=== PATIENT | female | born 1950 | race Caucasian/White ===

== ENCOUNTER 2019-04-28 21:46 | Emergency (ER) | payer MEDICARE, OTHER ==
[2019-04-28] MEDS ORDERED: Diphtheria,Pertussis(Acell),Tetanus Vaccine 0.5 ML SDV IM ONE (22:27)
--- NOTE | 2019-04-28 22:27 | EDM.PDOC ---
ED HPI GENERAL MEDICAL PROBLEM - General Chief Complaint: Skin Complaint Stated Complaint: FISH HOOK MIDDLE FINGER RI HAND Time Seen by Provider: 04/28/19 22:05 Source of Information: Reports: Patient History Limitations: Reports: No Limitations - History of Present Illness INITIAL COMMENTS - FREE TEXT/NARRATIVE: fish hook in distal finger pad pad of 3rd digit right hand. generally healthy - Related Data Allergies Allergy/AdvReac Type Severity Reaction Status Date / Time nitrofurantoin Allergy Rash Verified 04/28/19 22:03 [From Macrobid] Sulfa (Sulfonamide Allergy Hives Verified 04/28/19 22:03 Antibiotics) Home Meds: Home Meds Estrogens, Conjugated [Premarin Vaginal Crm] 04/28/19 [History] Past Medical History - Past Surgical History GI Surgical History: Reports: Abdominal paracentesis, Cholecystectomy Musculoskeletal Surgical History: Reports: Arthroscopic Knee Social & Family History - Tobacco Use Smoking Status *Q: Never Smoker ED ROS GENERAL - Review of Systems Review Of Systems: See Below Constitutional: Denies: Fever, Chills Respiratory: Denies: Shortness of Breath, Wheezing Cardiovascular: Denies: Chest Pain ED EXAM, SKIN/RASH Exam: See Below Text/Narrative:: exam limited to right hand Exam Limited By: No Limitations Skin: Other (fish hook inbedded into pad of right idex finger) ED SKIN PROCEDURES - Additional/Other Procedure(s) Other (Free Text) Procedure(s): area at base of hook was cleaned with alcohol and infiltrated with 1 cc of lidocaine 1%, hook was removed without difficulty. hand was cleaned with warm soapy water and covered with bandaid. pt tolerated well Course - Vital Signs Last Recorded V/S: Last Vital Signs Temp 36.0 C 04/28/19 22:07 Pulse 67 04/28/19 22:07 Resp 14 04/28/19 22:07 BP 137/70 04/28/19 22:07 Pulse Ox 98 04/28/19 22:07 - Orders/Labs/Meds Orders: Active Orders 24 hr Category Date Time Status Vaccines to be Administered [RC] PER UNIT ROUTINE Care 04/28/19 22:27 Ordered Diphth,Pertuss(Acell),Tet Vac [Adacel] Med 04/28/19 22:27 Once 0.5 ml IM .ONCE ONE Departure - Departure Time of Disposition: 22:26 Disposition: Home, Self-Care 01 Condition: Good Clinical Impression: Fish hook injury of finger Qualifiers: Encounter type: initial encounter Laterality: right Qualified Code(s): S69.91XA - Unspecified injury of right wrist, hand and finger(s), initial encounter - Discharge Information *PRESCRIPTION DRUG MONITORING PROGRAM REVIEWED*: Not Applicable *COPY OF PRESCRIPTION DRUG MONITORING REPORT IN PATIENT [place]: Not Applicable Referrals: PCP,None [Primary Care Provider] - Forms: ED Department Discharge Additional Instructions: wash with warm soapy water and observe for signs of infection update you clinic vaccination record with today TDaP ice for pain control - My Orders Last 24 Hours: My Active Orders 04/28/19 22:27 Vaccines to be Administered [RC] PER UNIT ROUTINE Diphth,Pertuss(Acell),Tet Vac [Adacel] 0.5 ml IM .ONCE ONE - Assessment/Plan Last 24 Hours: My Active Orders 04/28/19 22:27 Vaccines to be Administered [RC] PER UNIT ROUTINE Diphth,Pertuss(Acell),Tet Vac [Adacel] 0.5 ml IM .ONCE ONE
== END 2019-04-28 23:10 | disposition home or self-care (01) ==
LOC: JP.ED 21:46
DX: S60.450A Superficial foreign body of right index finger, initial encounter (principal); Z23 Encounter for immunization; Z88.1 Allergy status to other antibiotic agents; Z88.2 Allergy status to sulfonamides; W45.8XXA Other foreign body or object entering through skin, initial encounter; Z90.49 Acquired absence of other specified parts of digestive tract
CPT/HCPCS: 90471; 90715; 99283